=== PATIENT | male | born 1940 | race Caucasian/White ===

== ENCOUNTER → 2023-10-19 08:05 | Outpatient (REF) | payer MEDICARE, SELFPAY | LOC: DHVS 08:05 | PROVIDERS: ATTENDING PHYSICIAN Surgery Vascular Surgery | DX: I71.40 Abdominal aortic aneurysm, without rupture, unspecified (principal); I73.9 Peripheral vascular disease, unspecified | CPT/HCPCS: 76770; 93922; 93925 ==

== ENCOUNTER → 2023-11-19 12:52 | Outpatient (REF) | payer MEDICARE, SELFPAY ==
[2023-11-19 14:29] LABS: % Basophils 0.2 % (0-2); % Eosinophils 0.6 % (0-6); % Immature Granulocytes 0.2 % (0-0.5); % Lymphocytes 82.3 % (20.5-51.1); % Monocytes 1.7 % (1.7-9.3); Absolute Basophils 0.1 10^3/uL (0-0.2); Absolute Eosinophils 0.2 10^3/uL (0-0.7); Absolute Immature Granulocytes 0.1 10^3/uL (0-0.05); Absolute Lymphocytes 28.9 10^3/uL (1.2-3.4); Absolute Monocytes 0.6 10^3/uL (0.1-0.6); Absolute Neutrophils 5.3 10^3/uL (1.4-6.5); Hematocrit 36.5 % (39.0-52.0); Mean Corp Hgb Conc. 32.9 g/dL (33.0-37.0); Mean Corpuscular Hgb 31.3 pg (27.0-31.0); Mean Corpuscular Volume 95.1 fL (80.0-94.0); Mean Platelet Volume 10.5 fL (7.4-10.4); Nucleated Red Blood Cells % 0 % (-); Platelet Count 184 10^3/uL (130-400); Red Blood Cell Count 3.84 10^6/uL (4.70-6.10); Red Cell Dist. Width 14.6 % (11.5-14.5); White Blood Cell Count 35.2 10^3/uL (4.8-10.8)
[2023-11-21 18:25] LABS: Beta-2-Glycoprotein I Ab. IgG <10 SGU (<=20); Beta-2-Glycoprotein I Ab. IgM <10 SMU (<=20)
== END ==
LOC: RAD 12:52
PROVIDERS: ATTENDING PHYSICIAN Surgery Vascular Surgery; FAMILY PHYSICIAN Family Medicine; REFERRING PHYSICIAN Internal Medicine Hematology & Oncology
DX: I73.9 Peripheral vascular disease, unspecified (principal); D72.820 Lymphocytosis (symptomatic); N18.4 Chronic kidney disease, stage 4 (severe)
CPT/HCPCS: 36415; 85025; 86146; 93922; 93925

== ENCOUNTER 2023-12-16 08:30 | Day surgery (SDC) | payer MEDICARE, SELFPAY ==
[2023-12-14 09:24] VITALS: BMI 22.5
[2023-12-14 10:03] LABS: % Basophils 0.1 % (0-2); % Eosinophils 0.3 % (0-6); % Immature Granulocytes 0.3 % (0-0.5); % Lymphocytes 82.2 % (20.5-51.1); % Monocytes 1.5 % (1.7-9.3); % Neutrophils 15.6 % (42.2-75.2); Absolute Eosinophils 0.1 10^3/uL (0-0.7); Absolute Immature Granulocytes 0.1 10^3/uL (0-0.05); Absolute Lymphocytes 32.4 10^3/uL (1.2-3.4); Absolute Monocytes 0.6 10^3/uL (0.1-0.6); Absolute Neutrophils 6.1 10^3/uL (1.4-6.5); Hematocrit 39.9 % (39.0-52.0); Hemoglobin 13.3 g/dL (13.0-18.0); Mean Corp Hgb Conc. 33.3 g/dL (33.0-37.0); Mean Corpuscular Hgb 30.8 pg (27.0-31.0); Mean Corpuscular Volume 92.4 fL (80.0-94.0); Mean Platelet Volume 10.7 fL (7.4-10.4); Nucleated Red Blood Cells % 0 % (-); Platelet Count 193 10^3/uL (130-400); Red Blood Cell Count 4.32 10^6/uL (4.70-6.10); Red Cell Dist. Width 14.1 % (11.5-14.5); White Blood Cell Count 39.4 10^3/uL (4.8-10.8)
[2023-12-14 10:13] LABS: Blood Urea Nitrogen 52 mg/dl (9-20); Calcium 9.5 mg/dl (8.4-10.2); Carbon Dioxide 26 mmol/L (22-30); Chloride 100 mmol/L (98-107); Estimated Creatinine Clearance 25 ml/min; Glucose 108 mg/dl (70-99); Potassium 3.7 mmol/L (3.5-5.1); Sodium 138 mmol/L (135-145); eGFR 31.04
[2023-12-14 10:30] LABS: INR 0.97; PT 12.7 Sec (11.4-14.6)
[2023-12-14 10:31] LABS: APTT 31.1 Sec (23.4-35.0)
--- NOTE | 2023-12-14 13:09 | PTCARENOTE ---
WBC's 39.4, BUN 52 & creatinine 2.1 were all collected today; Stephanie at 's office has been notified.
[2023-12-16] VITALS (17 sets, daily range): BP systolic 15–178; BP diastolic 70–128; BMI 22.3
[2023-12-16] MEDS: NSS 500 IV (09:29)
--- NOTE | 2023-12-16 10:35 | W.SUR.PREOP ---
Pre-Operative Surgical Note
-
I have examined this patient prior to the performance of the scheduled procedure.
The patient's condition is unchanged from the time of the current History and
Physical and the patient is able to undergo the scheduled procedure.
--- NOTE | 2023-12-16 12:08 | W.SUR.POST ---
Surgical Immediate Post Op
Note
Pre Op Diagnosis: PAD
Post Op Diagnosis: PAD
Procedure Performed: Left lower extremity arteriogram with TELEVISION AGENT and stent to distal SFA/popliteal occlusion and TELEVISION AGENT/stent mid SFA stenosis
Primary Surgeon: Perry Naik MD
Secondary Surgeons: N/A
Anesthesia: MAC
Estimated Blood Loss: Less than 2 ml
Fluids: See anesthesia flowsheet
Drains/Shunts: N/A
Specimens/Cultures: N/A
Doppler/Duplex/Angio (Y/N): Y
Complications: None
Operative Findings: Dopplerable signal at DP and peroneal
--- NOTE | 2023-12-16 12:35 | W.PV.INTER ---
VPI Note
Pre Admission Note
Functional Status: Light Work
Ambulation: Ambulate Independently
Pre Op Medications
Pre Op ASA: No
Pre Op Statin: Yes
Pre Op BHAKTI Inhibitor/ARB: No
Pre Op P2y12 Antagonist: None
Pre Op Beta Blockers: Chronic > 30 Days
Pre Op Chronic Anticoagulant: None
Pre Op Cilostazol: No
Post Op Medications
Post Op ASA: Yes
Post Op Statin: Yes
Post Op BHAKTI Inhibitor/ARB: No
Post Op P2y12 Antagonist: Clopidogrel
Post Op Beta Blockers: Chronic > 30 Days
Post Op Chronic Anticoagulant: None
Post Op Cilostazol: No
[2023-12-16] MEDS: LOW STRENGTH ASPIRIN 81 MG PO (12:52)
[2023-12-16] MEDS: PLAVIX 300 MG PO (12:52)
[2023-12-16] MEDS: NSS 1000 IV (13:15)
--- NOTE | 2023-12-16 13:24 | OR.RPT ---
Operative Report
Operative Report
PROCEDURE DATE: 12/16/2023
Preoperative diagnosis:
1. Chronic limb threatening ischemia left lower extremity.
2. History of aortobiiliac endograft placement for abdominal aortic aneurysm.
3. Chronic kidney disease.
Postoperative diagnosis: Same
Procedure:
1. Duplex assisted ANTEGRADE left common femoral artery puncture.
2. Left lower extremity arteriogram.
3. Subintimal recanalization of occluded left distal superficial femoral/cybuj-lgv-gwhn popliteal artery.
4. Balloon angioplasty of occluded distal superficial femoral artery/nsrpa-ell-qnhc popliteal artery with 4 mm angioplasty balloon.
5. Placement of Zilver PTX drug-eluting stent (6 mm x 120 mm) left distal superficial femoral artery/above-knee popliteal artery.
6. Balloon angioplasty/stent with a Zilver PTX drug-eluting 6 mm x 4 cm stent left mid superficial femoral artery stenosis.
7. Supervision and interpretation.
Surgeon: Naik
System Operation Superintendent: None
Complications: None
Anesthesia: Local, sedation
Fluoroscopy:
7.8 min
17 mGy
3.65 Gy.cm2
Indications for procedure:
Patient with known chronic peripheral arterial disease and claudication. History of bifurcated modular aortobiiliac stent graft for abdominal aortic aneurysm. Due to concerns about chronic kidney disease and patient's ability to manage (despite
moderate lifestyle limitation), we had favored conservative management. Patient presented with severely worsened claudication and signs/symptoms consistent with ischemic rest plane/limb threatening ischemia. Duplex had demonstrated new occlusion
of the distal SFA and popliteal artery. Therefore patient was brought for angiography. Risk/benefits/alternatives were all fully discussed including the concerns about worsening of chronic kidney disease. Discussed due to history of endograft,
need for antegrade access. He understood all wish to proceed.
Description of procedure:
Patient was identified, brought to the operating room. Placed on the table in the supine position. After the adequate administration of anesthesia, the patient was prepped and draped in the standard surgical fashion. A standard preoperative
timeout was undertaken and everybody was in agreement with the plan.
The left common femoral artery was accessed in an ANTEGRADE fashion with a micropuncture kit under direct duplex ultrasound guidance. Duplex assessment demonstrated moderate common femoral and femoral bifurcation plaque. Angiogram through the
micropuncture sheath confirmed access of the common femoral with wire and micropuncture sheath into the SFA. A 5 [place] sheath was then advanced into the SFA over a 0.035 inch wire. Left lower extremity arteriogram was then performed:
(Common femoral and profunda not visualized secondary to antegrade access with sheath tip in superficial femoral artery).
Superficial femoral artery: Patent with diffuse luminal irregularities and areas of calcified plaque. Moderate mid SFA stenosis with slightly irregular flow distal to the area of stenosis (somewhat whirling of contrast and poststenotic dilated
SFA). Patent flow beyond here but again luminal irregularities diffusely. Then occlusion at the very distal SFA/above-knee popliteal artery transition.
Popliteal artery: Occluded proximally, but reconstituted flow in the distal lcxcu-gkp-jlef/behind knee popliteal artery. Remainder of the popliteal artery appeared patent with no significant stenosis. Beyond here the runoff appeared to be via the
tibioperoneal trunk into the peroneal artery. The other tibial vessels were not visualized. There was some moderate atherosclerotic plaque and areas of possible mild to moderate stenoses in the TP trunk and peroneal artery, but no severe
high-grade stenosis could be confirmed.
At this point, I exchanged for a Storq wire in the SFA, and then exchanged for a 6 [place]an 45 cm sheath (so that I could angled the sheath over towards the right groin to facilitate workflow). The patient was given 5000 units of intravenous heparin.
Next under roadmap assisted guidance I was able to gain subintimal axis using a flopping on hydrophilic wire and a CXI catheter. I was then able to gain wire access back into the true lumen in the above-knee popliteal artery. My catheter advanced
through and I confirmed that I was in the true lumen in the behind/below-knee popliteal artery. I then exchanged back for a Storq wire. I then performed balloon angioplasty to predilate the area of occlusion with a 4 mm angioplasty balloon. Next
I placed a 6 mm x 120 mm Zilver PTX drug-eluting self-expanding stent in the occluded segment of very distal SFA and above-knee popliteal artery. This was post angioplastied with a 5 mm angioplasty balloon. Completion angiogram demonstrated
excellent result. At this point I elected to primarily stent to the mid SFA stenosis alluded to earlier. I used a 6 mm x 4 cm Zilver PTX stent and then post angioplastied with a 5 mm balloon. Completion angiogram now demonstrated excellent result
with good flow throughout the entirety of the SFA and above-knee, behind knee, below knee popliteal artery into the TP trunk/peroneal artery runoff. As noted there was some areas of mild to moderate stenosis in the runoff single-vessel, but given
his symptoms of claudication and concern regarding his single-vessel runoff I did not feel an intervention in those vessels was warranted. At this point I was very satisfied. Wires and catheters were withdrawn. Protamine was given to reverse the
heparin and the sheath was withdrawn and manual pressure was applied. Complete hemostasis was achieved in the left groin. The patient tolerated the procedure well. He had a good dopplerable peroneal Doppler signal as well as a Doppler signal in
the vicinity of the distal DP.
== END 2023-12-16 18:15 | disposition home or self-care (01) ==
LOC: CATH 08:30
PROVIDERS: ATTENDING PHYSICIAN Surgery Vascular Surgery; FAMILY PHYSICIAN Family Medicine; OTHER PHYSICIAN Internal Medicine Cardiovascular Disease; OTHER PHYSICIAN Specialist
DX: I70.222 Atherosclerosis of native arteries of extremities with rest pain, left leg (principal); Z95.820 Peripheral vascular angioplasty status with implants and grafts; Z79.84 Long term (current) use of oral hypoglycemic drugs; I12.9 Hypertensive chronic kidney disease with stage 1 through stage 4 chronic kidney disease, or unspecified chronic kidney disease; N18.4 Chronic kidney disease, stage 4 (severe); Z87.891 Personal history of nicotine dependence
CPT/HCPCS: 37226; 36415; 75710; 76937; 80048; 85025; 85610; 85730; 86850; 86900; 86901; 93005; C1725; C1769; C1874; C1887; C1894; Q9967

== ENCOUNTER 2024-01-14 13:15 | Inpatient (IN) | payer MEDICARE, SELFPAY ==
[2024-01-14] VITALS (7 sets, daily range): BP systolic 117–172; BP diastolic 70–105; BMI 22.2; BMI 21.5
--- NOTE | 2024-01-14 10:33 | ED.GENMED ---
History of Present Illness
General
Chief Complaint: Anal/Rectal Problem
Source: patient
Exam Limitations: none
Time Seen by Provider: 01/14/24 09:57
Travel History
Have you had any contact with someone who has COVID-19?: No
Do you have any symptoms of coronavirus? Fever > 100 degrees, chills, cough, shortness of breath, sore throat, loss of taste or smell, muscle aches, or headache?: No
History of Present Illness
History of Present Illness:
83-year-old male who presents with black stools. The patient states that symptoms have been ongoing for about 3 days. Patient recently was put on aspirin and Plavix due to lower extremity vascular procedure that was performed on December 15. Patient
denies abdominal pain but has felt a little bit weak. No shortness of breath or lightheadedness. No palpitations.
Past History
Past History
ED Past Medical History: HTN, Hypercholesterolemia and Other (bladder ca, renal insufficiency, Peripheral vascular disease, upper GI bleed, abdominal aortic aneurysm, angioectasia of the duodenum)
ED Past Surgical History: Appendectomy
Social History
Tobacco: Former smoker
Alcohol: None
Drug: None
Living: alone
Phy Exam
Physical Exam
Physical Exam:
CONSTITUTIONAL Patient alert and oriented to person, place and time. Well-appearing. Vital signs reviewed.
HEAD atraumatic, normocephalic.
EYES eyelids normal to inspection, Extraocular muscles intact, Conjunctiva normal, Sclera normal.
NECK normal range of motion, Trachea midline, no jugular venous distention.
RESPIRATORY CHEST No respiratory distress noted, Chest expansion equal, Bilateral breath sounds clear.
CARDIOVASCULAR regular rate and rhythm, Heart sounds normal.
ABDOMEN abdomen nontender, Bowel sounds normal. No distention.
Rectal exam melanotic stool, heme positive
BACK normal inspection, no obvious deformities
UPPER EXTREMITY range of motion normal, Motor strength normal, no cyanosis, no edema.
LOWER EXTREMITY range of motion normal, Motor strength normal, no cyanosis, no edema.
NEURO Speech normal, No focal motor deficits, [place] coma scale 15, Memory normal, Cranial Nerves intact to screening exam.
SKIN skin warm, dry, and normal in color.
PSYCHIATRIC patient oriented to person place and time, Normal affect.
Course
Orders/Labs/Results
Orders:
Orders
01/14/24
Electrocardiogram (*1) Stat
Reason for Study: Chest Pain
Comment: DONE
01/14/24 09:28
EKG- Treatment ONCE
01/14/24 10:05
IV Insert/Care/Rem.- Treatment PRN
01/14/24 10:40
Pantoprazole 80 mg/100 ml Nss [Protonix] 80 mg in 100 ml IV NOW
Pantoprazole [Protonix IV] 80 mg IV NOW STA
01/14/24 11:16
Complete Blood Count/With Diff Urgent
Comprehensive Metabolic Panel Urgent
Prothrombin Time Urgent
01/14/24 13:05
GASTROINTESTINAL CONSULT Routine
Consulting Provider: Kamilah Renee
Was physician already notified: Yes
Reason for consult: gi bleed on asa plavix
01/14/24 13:06
Admit/Transfer Patient As Directed
Co-Sign Provider:
Level of Care: Inpatient admission
Assign to:: Medical/Surgical
Physician / Group: waldo muse
Diagnosis: gi bleed likely upper
Reason for Hospitalization: gi bleed likely upper
Expected length of stay greater than two midnights?: Yes
ELOS- Estimated Length of Stay in days: 3
I certify the patient meets the requirements for IP care: Yes
Code Status As Directed
Resuscitation Status: Do not resuscitate
Reached after discussion with pt or family/Healthcare POA: Yes
Based on pt advanced directive or healthcare POA form: Yes
Decision communicated with: per pt
DNR Bracelet Application ONCE
01/14/24 13:23
Type+Screen Urgent
01/14/24 14:18
Acetaminophen [Tylenol] 650 mg PO Q4HPRN PRN
Pantoprazole 80 mg/100 ml Nss [Protonix] 80 mg in 100 ml IV Q10H
01/14/24 14:18
Activity As Directed
Activity Level: As Tolerated
Intake/ Output As Directed
Frequency: Per unit guidelines
Pneumatic Compression Sleeves As Directed
Type: Knee high
Vital Signs As Directed
Frequency: Per unit guidelines
Ot Eval And Treat Routine
Pt Eval And Treat Routine
Activity Level: As Tolerated
DX Deep Vein Thrombosis Video Routine
01/14/24 Dinner
NPO
Allow oral meds: Yes
Allow clear liquids: No
NPO with Ice Chips: No
01/14/24 20:00
Carvedilol [Coreg] 12.5 mg PO BID
01/15/24 06:00
Complete Blood Count/With Diff IN AM
Comprehensive Metabolic Panel IN AM
01/15/24 08:00
Dapagliflozin [Farxiga] 10 mg PO DAILY
Felodipine Extended Release [Plendil Extended Release] 5 mg PO DAILY
Rosuvastatin Calcium [Crestor] 10 mg PO DAILY
01/16/24 06:00
Complete Blood Count/With Diff IN AM
Comprehensive Metabolic Panel IN AM
01/17/24 06:00
Complete Blood Count/With Diff IN AM
Comprehensive Metabolic Panel IN AM
Abnormal Lab Results
01/14/24
11:16
WBC 26.3 H 10^3/uL
(4.8-10.8)
RBC 3.22 L 10^6/uL
(4.70-6.10)
Hgb 10.0 L g/dL
(13.0-18.0)
Hct 30.8 L %
(39.0-52.0)
MCV 95.7 H fL
(80.0-94.0)
MCH 31.1 H pg
(27.0-31.0)
MCHC 32.5 L g/dL
(33.0-37.0)
RDW 15.0 H %
(11.5-14.5)
MPV 10.7 H fL
(7.4-10.4)
Abs Immat Gran (auto) 0.1 H 10^3/uL
(0-0.05)
Absolute Lymphs (auto) 20.6 H 10^3/uL
(1.2-3.4)
Neutrophils % 18.3 L %
(42.2-75.2)
Lymphocytes % 78.2 H %
(20.5-51.1)
BUN 75 H mg/dl
(9-20)
Creatinine 2.3 H mg/dL
(0.7-1.3)
Glucose 107 H mg/dl
(70-99)
01/14/24 11:16
01/14/24 11:16
Vital Signs
Initial and Last Documented VS:
Initial Vital Signs
Temp Pulse Resp BP Pulse Ox
97.7 F 74 16 135/78 98
01/14/24 09:48 01/14/24 09:48 01/14/24 09:48 01/14/24 09:48 01/14/24 09:48
Last Documented Vital Signs
Temp Pulse Resp BP Pulse Ox
97.4 F 73 16 172/92 100
01/14/24 14:19 01/14/24 14:19 01/14/24 14:19 01/14/24 14:19 01/14/24 14:19
MDM/Problems Addressed
MDM/Problems Addressed:
Upper GI bleed, chronic AAA
*Pulse Oximetry
Patient hypoxic: no
*EKG
Interpreted by ED Provider?: Yes
Interpretation: abnormal
Rhythm: sinus
[place]: normal axis
Interval: first degree heart block
Ischemia: non-specific ST changes
*Airport Manager Interpretation
Rate: normal
Interpretation: normal
Rhythm: sinus
*Critical Care Note
Total Time (30-74mins, 75-104mins- exclusive of procedures): 30 minutes
Data Reviewed
Review of Other/Old Records Reveals: Labs (Prior hemoglobin reviewed), Operative Reports (Operative report reviewed from December 15) and Other (Prior endoscopy reviewed from October 2018)
Source: patient and family
Further Testing Considered But Not Given:
Consider CT but abdomen soft and nontender. Suspect upper GI bleed.
Patient Management
Discussion with other providers: Hospitalist
Escalation/DeEscalation of care consider admission/obs:
83-year-old male presents with GI bleeding. Hemodynamically he is stable but his hemoglobin is dropped 3 g from prior. IV PPI, admit
ED Attending Note
-
Portions of this chart may have been created with voice recognition software.� Occasional wrong word or��sound alike� substitutions may have occurred due to the inherent limitations of voice recognition software.
Discharge Plan
Departure
Patient Disposition: Admit
Date of Disposition: 01/14/24
Time of Disposition: 12:31
Admit to: Telemetry
Presentation/result/management discussed w/ accepting MD/DO: Hospitalist
Discharge Problem:
Acute upper gastrointestinal bleeding
Interventions
Interventions:
*Risk Screen - Suicide Last Done: 01/14/24 11:03
*General Assessment Last Done: 01/14/24 11:01
*Neglect/Abuse Screening Last Done: 01/14/24 12:15
ED- Fall Risk Assessment Last Done: 01/14/24 12:16
*ED COVID-19 Vaccine History Last Done: 01/14/24 09:48
*Nursing Disposition Last Done: 01/14/24 14:25
MN-Ndcdep-Liocfzwwhg Assessment Last Done: 01/14/24 12:00
ED-Skin Assessment Last Done: 01/14/24 12:16
Discharge Date and Time
Discharge Date/Time: 01/14/24 14:27
[2024-01-14] MEDS: PROTONIX IV 80 MG IV (11:13)
[2024-01-14] MEDS: PROTONIX 100 IV ×3 (11:13→19:34)
[2024-01-14 11:53] LABS: % Basophils 0.3 % (0-2); % Eosinophils 0.8 % (0-6); % Immature Granulocytes 0.3 % (0-0.5); % Lymphocytes 78.2 % (20.5-51.1); % Monocytes 2.1 % (1.7-9.3); % Neutrophils 18.3 % (42.2-75.2); Absolute Basophils 0.1 10^3/uL (0-0.2); Absolute Eosinophils 0.2 10^3/uL (0-0.7); Absolute Immature Granulocytes 0.1 10^3/uL (0-0.05); Absolute Lymphocytes 20.6 10^3/uL (1.2-3.4); Absolute Monocytes 0.5 10^3/uL (0.1-0.6); Absolute Neutrophils 4.8 10^3/uL (1.4-6.5); Hematocrit 30.8 % (39.0-52.0); Mean Corp Hgb Conc. 32.5 g/dL (33.0-37.0); Mean Corpuscular Hgb 31.1 pg (27.0-31.0); Mean Corpuscular Volume 95.7 fL (80.0-94.0); Mean Platelet Volume 10.7 fL (7.4-10.4); Nucleated Red Blood Cells % 0.1 % (-); Platelet Count 161 10^3/uL (130-400); Red Blood Cell Count 3.22 10^6/uL (4.70-6.10); White Blood Cell Count 26.3 10^3/uL (4.8-10.8)
[2024-01-14 11:57] LABS: INR 1.02; PT 13.2 Sec (11.4-14.6)
[2024-01-14 12:03] LABS: ALT (SGPT) 22 U/L (0-50); AST (SGOT) 28 U/L (17-59); Albumin 4.9 g/dl (3.5-5.0); Alkaline Phosphatase 101 U/L (38-126); Blood Urea Nitrogen 75 mg/dl (9-20); Calcium 9.4 mg/dl (8.4-10.2); Carbon Dioxide 25 mmol/L (22-30); Chloride 102 mmol/L (98-107); Estimated Creatinine Clearance 23 ml/min; Glucose 107 mg/dl (70-99); Potassium 3.7 mmol/L (3.5-5.1); Sodium 140 mmol/L (135-145); Total Bilirubin 0.4 mg/dl (0.2-1.3); Total Protein 7.2 g/dl (6.3-8.2); eGFR 27.83
--- NOTE | 2024-01-14 12:44 | HPS.HSE ---
Addendum entered and electronically signed by Alejandra Castro MD 01/14/24 16:10:
Addendum
Reached out to oncology office. Pt is dx with CLL.
End
Addendum entered and electronically signed by Alejandra Castro MD 01/14/24 14:08:
I saw and examined the patient.
The WINDOWS PHONE DEVELOPER or PA's note was reviewed and I agree with the note.
Comment:
83 years old male who lives alone presented with black stools over the last few days. He had 1 black stool this morning and 2 black bowel movements yesterday at home. No abdominal pain. No nausea or vomiting. Patient takes aspirin and Plavix for
peripheral vascular disease.
Physical Exam
General: Comfortable and Conversant; No Fever or Chills
HEENT: NormoCephalic, Anicteric, PERRLA, [place] Conjunctivae and No Ptosis
Respiratory: Clear; No Wheezes, Rales or Rhonchi
Cardiac: S1/S2 and Regular Rhythm; No Murmur, Rub, Gallop or Peripheral Edema
GI: Soft, Non Tender, Non Distended, Normal Bowel Sounds and No Hepatosplenomegaly
Rectal: Hem Positive ([place])
Genito-urinary: No Hua
Musculoskeletal: No Clubbing, No Cyanosis and No Edema
Skin: Warm and Dry; No Rash
Neuro: AO x 3, No Motor Deficits, Nonfocal/grossly intact, Cranial Nerves Intact and No Sensory Deficits; No Slurred Speech, Facial Droop or Tremors
Psych: No agitation
Assessment and plan
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
Admit the patient to the hospital
Hold Plavix, continue with aspirin
No signs of shock
Continue with Protonix
Antinausea medicine as needed
Clear diet for now
Might need upper endoscopy
Appreciate GI help
# Recent left lower extremity angiogram and stent placement
Will hold the Plavix for anticipated GI workup and ongoing GI bleeding
Continue with aspirin for now
Will discuss with vascular surgery
# Patient reports recent diagnosis of blood disorder/leukemia. Primary oncologist Dr. Parson. Will reach out to know more details
#Chronic kidney disease stage IV
Creatinine mildly elevated from 2.1-2.3
Will continue to monitor. Avoid nephrotoxic
Total time spent to see the patient, examine the patient on the floor, review data and lab results, discuss treatment plan with patient, ER doctor, nursing staff around 75 minutes
Original Note:
Family Physician
-
Family Physician: Juliano Villegas
Chief Complaint
-
Black stools x 3 to 4 days
History of Present Illness
83-year-old male complaining of black stools for the past 3-4 days. He is currently on aspirin and Plavix status post drug-eluting stents to left lower extremity on 12/16/2023 and aorto iliac endograft placement for abdominal aortic aneurysm by
[facility]. Patient denies headache, fever, chills, abdominal pain, nausea, vomiting, diarrhea, chest pain, palpitations, shortness of breath, lightheadedness. Other past medical history includes leukemia HTN, HLD bladder CA, TURP x 2 2011/2012, TURBT
2019, CKD 4, PVD, angio ectasia of the duodenum, AAA, former smoker.
Medical History
Past Medical History
Past Medical History: Reports Other
Additional Past Medical History:
leukemia
HTN
HLD
bladder CA 12 years ago
CKD 4
PVD
angio ectasia of the duodenum with GI bleed 2015 years ago
AAA
former smoker.
Past Surgical History: Reports Other
Additional Past Surgical History:
Hx aortobiiliac endograft placement for abdominal aortic aneurysm 12/16/2023
s/p drug-eluting stent distal superficial femoral artery above-knee popliteal artery 12/16/2023
drug-eluting stent left mid superficial femoral artery 12/16/2023
Appendectomy
Tonsillectomy
TURP x 2 , TURBT 2018
Bilateral cataract extraction 2017
Social History
Tobacco: Former Smoker (50 years 1 pack a day quit 2011)
Alcohol: None
Drug: None
Personal: Single
Living: Alone
Employment: Retired
Family History
Family History: Other (Mother age 94 cardiac issues father age 70s metastatic prostate cancer)
Allergies / Home Medications
Allergies reflects when Allergies were last updated in [facility].
Home Medications with original date entered in [facility]
Allergy/Medication List:
Allergies
Allergy/AdvReac Type Severity Reaction Status Date / Time
BHAKTI Inhibitors Allergy growth to Verified 01/14/24 09:50
cheek
mitomycin AdvReac Itching Verified 01/14/24 09:50
Home Medications
carvedilol 12.5 mg tablet 12.5 mg PO BID 11/21/18
felodipine 5 mg tablet,extended release 24 hr 5 mg PO DAILY 11/21/18
hydrochlorothiazide 25 mg tablet 25 mg PO DAILY 11/21/18
Cardio [place] (Peak) 2 tab PO DAILY 06/02/19
dapagliflozin propanediol 10 mg tablet (Farxiga) 10 mg PO DAILY 12/08/23
rosuvastatin 10 mg tablet 10 mg PO DAILY 12/08/23
aspirin 81 mg chewable tablet (Children's Aspirin) 81 mg PO DAILY #90 tabs 12/16/23
clopidogrel 75 mg tablet 75 mg PO DAILY #90 tabs 12/16/23
Review of Systems
-
History Source: Patient
A 12 point ROS was completed and negative except as noted: Yes
Constitutional: Reports Fatigue; Denies Fever
EENT: Denies Sore Throat or Runny Nose
Respiratory: Denies Cough or Trouble Breathing
Cardiac: Denies Chest Pain, Diaphoresis, Palpitations or Syncope
Abdomen/GI: Reports Black Stools; Denies Abdominal Pain, Nausea, Vomiting, Diarrhea, Constipated or Bloody Stools
: Denies Dysuria, Frequency, Flank Pain, Incontinence or Difficulty Voiding
Musculoskeletal: Denies Joint Pain or Edema
Skin: Denies Itching or Rash
Neurological: Denies Dizzy, Headache or Weakness
Endocrine: Reports No Symptoms
Hematologic/Lymphatic: Reports No Symptoms
Psych: Reports Calm
Physical Exam
Vital Signs
Vital Signs
Temp Pulse Resp BP Pulse Ox
97.7 F 77 11 133/79 100
01/14/24 09:48 01/14/24 12:15 01/14/24 11:15 01/14/24 12:00 01/14/24 12:15
Physical Exam
General: Comfortable and Conversant; No Fever or Chills
HEENT: NormoCephalic, Anicteric, PERRLA, [place] Conjunctivae and No Ptosis
Respiratory: Clear; No Wheezes, Rales or Rhonchi
Cardiac: S1/S2 and Regular Rhythm; No Murmur, Rub, Gallop or Peripheral Edema
Breast: Deferred by me
GI: Soft, Non Tender, Non Distended, Normal Bowel Sounds and No Hepatosplenomegaly
Rectal: Hem Positive ([place])
Genito-urinary: Deferred by me
Musculoskeletal: No Clubbing, No Cyanosis and No Edema
Skin: Warm and Dry; No Rash
Neuro: AO x 3, No Motor Deficits, Nonfocal/grossly intact, Cranial Nerves Intact and No Sensory Deficits; No Slurred Speech, Facial Droop or Tremors
Laboratory Results
-
01/14/24 11:16
01/14/24 11:16
Laboratory Results
PT 13.2 Sec (11.4-14.6) 01/14/24 11:16
INR 1.02 01/14/24 11:16
Total Bilirubin 0.4 mg/dl (0.2-1.3) 01/14/24 11:16
AST 28 U/L (17-59) 01/14/24 11:16
ALT 22 U/L (0-50) 01/14/24 11:16
Alkaline Phosphatase 101 U/L (38-126) 01/14/24 11:16
Impression/Plan
-
Impression/plan:
Admit to [facility]
GI bleed suspect possible upper
#History angioectasias of the duodenum with GI bleed 12 to 15 years ago
Heme positive stool in ER
-Hgb 10 was 13.3 on 12/14/2023
-Type and screen, obtain blood consent
-NPO
-IV PPI drip
-Hold Plavix, HCTZ
-Will continue low-dose aspirin 81 mg due to recent stents
-Consult GI
-Consult vascular surgery
-Follow CBC, BMP
#Hx aortobiiliac endograft placement for abdominal aortic aneurysm 12/16/2023
#Chronic limb ischemia left lower extremity Hx 12/16/2023
S/p drug-eluting stent distal superficial femoral artery above-knee popliteal artery, drug-eluting stent left mid superficial femoral artery
-Follows with Dr. Naik
-Hold Plavix
-Will continue low-dose aspirin 81 mg due to recent stents
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
WBC 26.3 <39.4 on 12/14/2023
-Patient follows with Dr. Rossana Parson not currently on any treatment
#CKD 4
Creatinine 2.3 baseline appears 2
-Follow BMP
#HTN�benign
133/79
-Continue carvedilol 12.5 mg twice daily, felodipine 5 mg daily, HCTZ 25 mg daily with hold parameters
#HLD
-Continue Crestor 10 mg daily
#Bladder CA 12 years ago
Had chemo wash/TURP x 2 , TURBT [address] Schaffer
DVT prophylaxis
SCDs
DNR per patient
--- NOTE | 2024-01-14 15:12 | CON.GI ---
Addendum entered and electronically signed by Kamilah Renee MD 01/14/24 18:37:
I saw and examined the patient.
The LABORER [employer]'s note was reviewed and I agree with the note.
Pt is an 83yo with hx chauhan's, CKD, leukemia, HTN, Hypercholesterolemia, bladder CA, prior angioectasia and recent chronic limb ischemia with arteriogram, recanalization of occluded left distal femoral popliteal artery, angioplasty with placement
of ALYSHA x2 in December 2023 with addition of Plavix. Pt now reports black stool over last few days. Last EGD 2018 with single angioectasia in duodenum treated with bipolar cautery, small HH, bx with + intestinal metaplasia, Colonoscopy 2019 with
diverticulosis, non bleeding hemorrhoids, TA polyps. On admission hbg 10 with baseline 12-13 in November. BUN up to 75 on admission
-melena/ acute anemia
-hx vascular stenting December 2023 on ASA and Plavix
-hx duodenal angioectasia 2018
-hx colon polyps
-- CLL
plan
Monitor H&H
Continue Protonix drip
Last Plavix -on hold now. Okay to continue aspirin
Timing of EGD to be decided next week after Plavix washout
Original Note:
Consultation
-
Date/Time Consultation Requested: 01/14/24 1400
Date/Time Consultation Performed: 01/14/24 1515
Requesting Provider: TY Ramirez
Performing Provider: TY Manriquez, Kamilah Renee MD
Reason for Consultation: GI bleed
Medical History
Chief Complaint / HPI
Chief Complaint: black stools
History of Present Illness:
Pt is an 83yo with hx chauhan's, CKD, leukemia, HTN, Hypercholesterolemia, bladder CA, prior angioectasia and recent chronic limb ischemia with arteriogram, recanalization of occluded left distal femoral popliteal artery, angioplasty with placement
of ALYSHA x2 in December 2023 with addition of Plavix. Pt now reports black stool over last few days. Last EGD 2019 with single angioectasia in duodenum treated with bipolar cautery, small HH, bx with + intestinal metaplasia, Colonoscopy 2019 with
diverticulosis, non bleeding hemorrhoids, TA polyps. On admission hbg 10 with baseline 12-13 in November.
Pt admit to [facility]4 [facility]. ER exam with melena heme +. He denies dysphagia, GERD, nausea, vomiting, abdominal pain, diarrhea, constipation, blood or black in stools. On daily ASA no other NSAID use.
Past Medical History
Past Medical History: Cancer (bladder CA), HTN, Hypercholesterolemia, Renal Failure (CKD stage 4) and Other (leukemia, PVD, angioectasia of duodenum with GI bleed 2018, AAA, former smoker, DJD, colon polyps, BHAKTI induced angioedema, chauhan's )
Past Surgical History: Appendectomy, Tonsilectomy, Urological (TURP, TURBT) and Other (aortobiiliac endograft placement for AAA, EUS superficial femoral artery above then knee popliteal artery 12/2023, and drug eluting stent left mid superficial fem
artery 12/2023, b/l cataract)
Social History
Tobacco: Non-Smoker
Alcohol: Occasional
Drug: None
Employment: Retired
Family History
Family History: Reviewed & Not Pertinent
Allergies / Home Medications
Allergy/AdvReac Type Severity Reaction Status Date / Time
BHAKTI Inhibitors Allergy growth to Verified 01/14/24 09:50
cheek
mitomycin AdvReac Itching Verified 01/14/24 09:50
�Medication �Instructions �Recorded
carvedilol 12.5 mg tablet 12.5 mg PO BID 11/21/18
felodipine 5 mg tablet,extended 5 mg PO DAILY 11/21/18
release 24 hr
hydrochlorothiazide 25 mg tablet 25 mg PO DAILY 11/21/18
Cardio [place] ([place]) 2 tab PO DAILY 06/02/19
dapagliflozin propanediol 10 mg 10 mg PO DAILY 12/08/23
tablet (Farxiga)
rosuvastatin 10 mg tablet 10 mg PO DAILY 12/08/23
aspirin 81 mg chewable tablet 81 mg PO DAILY #90 tabs 12/16/23
(Children's Aspirin)
clopidogrel 75 mg tablet 75 mg PO DAILY #90 tabs 12/16/23
Review of Systems
-
History Source: Patient
Constitutional: Reports Weight Loss ( 5lb )
EENT: Reports No Symptoms
Respiratory: Reports No Symptoms
Cardiac: Reports No Symptoms
Abdomen/GI: Reports Black Stools
: Reports No Symptoms
Musculoskeletal: Reports No Symptoms
Skin: Reports No Symptoms
Neurological: Reports Weakness
Endocrine: Reports No Symptoms
Hematologic/Lymphatic: Reports Bleeding
Vital Signs
Temp Pulse Resp BP Pulse Ox
97.4 F 73 16 172/92 100
01/14/24 14:19 01/14/24 14:19 01/14/24 14:19 01/14/24 14:19 01/14/24 14:19
Physical Exam
Exam
General: Well Developed, Well Nourished and No Apparent Distress
HEENT: Normocephalic and Anicteric
Respiratory: Clear
Cardiac: Regular Rhythm
GI: Soft, Non Tender and Non Distended
Rectal: Black (heme + melena per ER)
Musculoskeletal: No Cyanosis
Skin: Warm and Dry
Neuro: Awake, Alert and AO x 3
Psych: Calm
Results
WBC 26.3 10^3/uL (4.8-10.8) H 01/14/24 11:16
Hgb 10.0 g/dL (13.0-18.0) L 01/14/24 11:16
Hct 30.8 % (39.0-52.0) L 01/14/24 11:16
MCV 95.7 fL (80.0-94.0) H 01/14/24 11:16
Plt Count 161 10^3/uL (130-400) 01/14/24 11:16
Absolute Neuts (auto) 4.8 10^3/uL (1.4-6.5) 01/14/24 11:16
PT 13.2 Sec (11.4-14.6) 01/14/24 11:16
INR 1.02 01/14/24 11:16
Sodium 140 mmol/L (135-145) 01/14/24 11:16
Potassium 3.7 mmol/L (3.5-5.1) 01/14/24 11:16
Chloride 102 mmol/L (98-107) 01/14/24 11:16
Carbon Dioxide 25 mmol/L (22-30) 01/14/24 11:16
BUN 75 mg/dl (9-20) H 01/14/24 11:16
Creatinine 2.3 mg/dL (0.7-1.3) H 01/14/24 11:16
Calcium 9.4 mg/dl (8.4-10.2) 01/14/24 11:16
Total Bilirubin 0.4 mg/dl (0.2-1.3) 01/14/24 11:16
AST 28 U/L (17-59) 01/14/24 11:16
ALT 22 U/L (0-50) 01/14/24 11:16
Alkaline Phosphatase 101 U/L (38-126) 01/14/24 11:16
Diagnostic Image Results:
Prior GI Procedures:
10/2018 EGD - Normal second portion of the duodenum. Biopsied.
- A single angioectasia in the duodenum. Treated with
bipolar cautery.
- Erythematous mucosa in the antrum. Biopsied.
- Small hiatal hernia.
- Normal cardia.
- Z-line irregular, 38 cm from the incisors. Biopsied.
bx neg for H pylori, celiac, + mild chronic inactive gastritis and intestinal metaplasia in distal esophagus
10/2018- colon - The examined portion of the ileum was normal.
- Diverticulosis in the descending colon, in the
transverse colon, in the ascending colon and in the
cecum.
- Severe diverticulosis in the sigmoid colon. There was
narrowing of the colon in association with the
diverticular opening. There was evidence of diverticular
spasm. Lexi-diverticular erythema was seen.
- Non-bleeding external hemorrhoids.
- One 8 mm polyp in the proximal ascending colon,
removed with a cold snare. Resected and retrieved.
- One 6 mm polyp at 50 cm proximal to the anus, removed
with a cold snare. Resected and retrieved.
- Enlarged prostate found on digital rectal exam
bx tubular adenoma
Assessment / Plan
-
Pt is an 83yo with hx chauhan's, CKD, leukemia, HTN, Hypercholesterolemia, bladder CA, prior angioectasia and recent chronic limb ischemia with arteriogram, recanalization of occluded left distal femoral popliteal artery, angioplasty with placement
of ALYSHA x2 in December 2023 with addition of Plavix. Pt now reports black stool over last few days. Last EGD 2018 with single angioectasia in duodenum treated with bipolar cautery, small HH, bx with + intestinal metaplasia, Colonoscopy 2018 with
diverticulosis, non bleeding hemorrhoids, TA polyps. On admission hbg 10 with baseline 12-13 in November. BUN up to 75 on admission
-melena
-anemia
-hx vascular stenting December 2023 on ASA and Plavix
-hx duodenal angioectasia 2018
-hx colon polyps
other medical problems:
-chauhan's
-CKD
-leukemia with elevated WBC's
-bladder CA
-HTN
-hypercholesterolemia
PLAN:
Etiology of bleeding related recurrent angioectasia with slow GI bleed vs other BUN elevated to 75 likely more upper GI source
plan for EGD/colon after Plavix wash out -- pt took plavix this am 01/13
hbg stable cont to follow
ok for low residue diet today
reviewed with Dr. Naik about admission ideally 6 weeks needed of Plavix therapy -- goal is scope and restart
pt with hx chauhan's due EGD and should be on terminal manager PPI therapy -- cont ppI gtt for now
will follow
-
-
Thank you for consultation and allowing me to participate in the patient's care. Please call the [facility] operator GI physician during the after hours with any questions or concerns.
--- NOTE | 2024-01-14 15:35 | PTOTSP ---
The patient is independent with ambulation and elevations, no changes in mobility since onset of symptoms. No PT needs identified at this time, will sign off.
[2024-01-14] MEDS: COREG 12.5 MG PO (19:43)
[2024-01-15] MEDS: PROTONIX 100 IV (06:30)
[2024-01-15 07:00] VITALS: BP 174/81
[2024-01-15 08:21] LABS: % Basophils 0.2 % (0-2); % Eosinophils 0.9 % (0-6); % Immature Granulocytes 0.1 % (0-0.5); % Lymphocytes 76.2 % (20.5-51.1); % Monocytes 2.3 % (1.7-9.3); % Neutrophils 20.3 % (42.2-75.2); Absolute Eosinophils 0.2 10^3/uL (0-0.7); Absolute Lymphocytes 15.3 10^3/uL (1.2-3.4); Absolute Monocytes 0.5 10^3/uL (0.1-0.6); Absolute Neutrophils 4.1 10^3/uL (1.4-6.5); Hematocrit 26.6 % (39.0-52.0); Hemoglobin 8.8 g/dL (13.0-18.0); Mean Corp Hgb Conc. 33.1 g/dL (33.0-37.0); Mean Corpuscular Hgb 31.4 pg (27.0-31.0); Nucleated Red Blood Cells % 0 % (-); Platelet Count 145 10^3/uL (130-400); Red Cell Dist. Width 15.1 % (11.5-14.5); White Blood Cell Count 20.1 10^3/uL (4.8-10.8)
[2024-01-15 09:00] LABS: ALT (SGPT) 18 U/L (0-50); AST (SGOT) 23 U/L (17-59); Albumin 4.1 g/dl (3.5-5.0); Alkaline Phosphatase 88 U/L (38-126); Blood Urea Nitrogen 65 mg/dl (9-20); Calcium 8.9 mg/dl (8.4-10.2); Carbon Dioxide 25 mmol/L (22-30); Chloride 106 mmol/L (98-107); Estimated Creatinine Clearance 20 ml/min; Glucose 91 mg/dl (70-99); Potassium 3.5 mmol/L (3.5-5.1); Sodium 142 mmol/L (135-145); Total Bilirubin 0.5 mg/dl (0.2-1.3); Total Protein 6.2 g/dl (6.3-8.2); eGFR 25.18
[2024-01-15] MEDS: PLENDIL EXTENDED RELEASE 5 MG PO (09:13)
[2024-01-15] MEDS: COREG 12.5 MG PO ×2 (09:14→20:51)
[2024-01-15] MEDS: LOW STRENGTH ASPIRIN 81 MG PO (09:14)
[2024-01-15] MEDS: FARXIGA 10 MG PO (09:14)
[2024-01-15] MEDS: CRESTOR 10 MG PO (09:14)
[2024-01-15 09:33] VITALS: BP 192/89; PULSE 85
[2024-01-15 11:07] VITALS: BP 164/80
--- NOTE | 2024-01-15 12:33 | W.PN.HOSP.TC ---
Today's Communication/Plan
-
.
Assessment / Plan
Assessment / Plan
Physical Exam
General: Comfortable and Conversant; No Fever or Chills
HEENT: NormoCephalic, Anicteric, PERRLA, [place] Conjunctivae and No Ptosis
Respiratory: Clear; No Wheezes, Rales or Rhonchi
Cardiac: S1/S2 and Regular Rhythm; No Murmur, Rub, Gallop or Peripheral Edema
GI: Soft, Non Tender, Non Distended, Normal Bowel Sounds and No Hepatosplenomegaly
Rectal: Hem Positive ([place])
Genito-urinary: No Hua
Musculoskeletal: No Clubbing, No Cyanosis and No Edema
Skin: Warm and Dry; No Rash
Neuro: AO x 3, No Motor Deficits, Nonfocal/grossly intact, Cranial Nerves Intact and No Sensory Deficits; No Slurred Speech, Facial Droop or Tremors
Psych: No agitation
Assessment and plan
# Acute blood loss anemia secondary to GI bleeding, possibly upper GI bleeding due to history of duodenal telangiectasia in the past exacerbated by use of aspirin and Plavix
Hold Plavix, continue with aspirin
No signs of shock
Continue with Protonix
Antinausea medicine as needed
Ok for diet, plan for EGD after Plavix washout
Appreciate GI help
# Recent left lower extremity angiogram and stent placement
Held Plavix for anticipated GI workup and ongoing GI bleeding
Continue with aspirin for now
Vascular surgery is consulted.
# recent dx of CLL.. Primary oncologist Dr. Parson.
#Chronic kidney disease stage IV
Creatinine mildly elevated from 2.1-2.3
Will continue to monitor. Avoid nephrotoxic
# Essential HTN
uncontrolled
c/w Coreg, add low dose nifedipine
Total time spent to see the patient, examine the patient on the floor, review data and lab results, discuss treatment plan with patient, nursing staff around 55 minutes
Anticipated Discharge: > 48 hours
Subjective/Interval History
-
Date of Service: January 15, 2024
No complaints
No more Bms
Objective Data
-
Labs:
Laboratory Results
01/15/24
05:39
WBC 20.1 H
Hgb 8.8 L
Hct 26.6 L
Plt Count 145
Sodium 142
Potassium 3.5
Chloride 106
Carbon Dioxide 25
BUN 65 H
Creatinine 2.5 H
Glucose 91
Calcium 8.9
Total Bilirubin 0.5
AST 23
ALT 18
Alkaline Phosphatase 88
Vital Signs:
Vital Signs
Temp Pulse Resp BP Pulse Ox
98.5 F 74 18 164/80 100
01/15/24 07:00 01/15/24 07:00 01/15/24 07:00 01/15/24 11:07 01/15/24 07:00
I&O
01/14/24 01/15/24 01/16/24
06:59 06:59 06:59
Intake Total 120 / 120
Balance 120 / 120
--- NOTE | 2024-01-15 12:39 | W.PN.GI.CBS2 ---
Today's Communication / Plan
-
monitor Hb
continue PPI
Assessment / Plan
-
Pt is an 83yo with hx chauhan's, CKD, leukemia, HTN, Hypercholesterolemia, bladder CA, prior angioectasia and recent chronic limb ischemia with arteriogram, recanalization of occluded left distal femoral popliteal artery, angioplasty with placement
of ALYSHA x2 in December 2023 with addition of Plavix. Pt now reports black stool over last few days. Last EGD 2018 with single angioectasia in duodenum treated with bipolar cautery, small HH, bx with + intestinal metaplasia, Colonoscopy 2019 with
diverticulosis, non bleeding hemorrhoids, TA polyps. On admission hbg 10 with baseline 12-13 in November. BUN up to 75 on admission
-melena/ acute anemia
-hx vascular stenting December 2023 on ASA and Plavix
-hx duodenal angioectasia 2018
-hx colon polyps
-- CLL
plan
although Hb is down this am but no overt GI bleeding
continue diet for now
Monitor H&H
Continue Protonix drip
Last Plavix -on hold now. Okay to continue aspirin
Timing of EGD to be decided next week after Plavix washout
Total Time Spent with Patient (in minutes): 35
Subjective
Subjective
Date of Service: January 15, 2024
denies any further bleeding . tolerating diet
Objective
Data Reviewed
Laboratory Data:
Laboratory Results
01/15/24 05:39
01/15/24 05:39
Laboratory Results
PT 13.2 Sec (11.4-14.6) 01/14/24 11:16
INR 1.02 01/14/24 11:16
Total Bilirubin 0.5 mg/dl (0.2-1.3) 01/15/24 05:39
AST 23 U/L (17-59) 01/15/24 05:39
ALT 18 U/L (0-50) 01/15/24 05:39
Alkaline Phosphatase 88 U/L (38-126) 01/15/24 05:39
Vital Signs and I&O:
Vital Signs
Temp Pulse Resp BP Pulse Ox
98.5 F 74 18 164/80 100
01/15/24 07:00 01/15/24 07:00 01/15/24 07:00 01/15/24 11:07 01/15/24 07:00
I&O
01/14/24 01/15/24 01/16/24
06:59 06:59 06:59
Intake Total 120 / 120
Balance 120 / 120
Physical Exam
Physical Exam
GI: Soft, Non Distended and Non Tender
[2024-01-15] MEDS: APRESOLINE 10 MG PO (13:18)
[2024-01-15 15:00] VITALS: BP 145/81
--- NOTE | 2024-01-15 16:21 | CM ---
Met with pt at bedside
Lives alone in a 2 story home
Independent, does own shopping/food prep
DME - none
SNF/HH - denies past hx
Has ride at d/c
PCP - DR Villegas
Pharm - [facility]
Plan - home no needs
[2024-01-15] MEDS: PROTONIX 40 MG PO (20:51)
[2024-01-15 23:00] VITALS: BP 161/74
[2024-01-16 06:33] LABS: % Basophils 0.2 % (0-2); % Eosinophils 0.5 % (0-6); % Immature Granulocytes 0.1 % (0-0.5); % Monocytes 5.8 % (1.7-9.3); Absolute Basophils 0.1 10^3/uL (0-0.2); Absolute Eosinophils 0.2 10^3/uL (0-0.7); Absolute Lymphocytes 21.7 10^3/uL (1.2-3.4); Absolute Monocytes 1.7 10^3/uL (0.1-0.6); Hematocrit 29.9 % (39.0-52.0); Hemoglobin 9.5 g/dL (13.0-18.0); Mean Corp Hgb Conc. 31.8 g/dL (33.0-37.0); Mean Corpuscular Volume 97.7 fL (80.0-94.0); Mean Platelet Volume 10.6 fL (7.4-10.4); Nucleated Red Blood Cells % 0 % (-); Platelet Count 171 10^3/uL (130-400); Red Blood Cell Count 3.06 10^6/uL (4.70-6.10); Red Cell Dist. Width 15.2 % (11.5-14.5); White Blood Cell Count 28.6 10^3/uL (4.8-10.8)
[2024-01-16 06:50] LABS: % Neutrophils 17.4 % (42.2-75.2)
[2024-01-16 07:09] LABS: ALT (SGPT) 19 U/L (0-50); AST (SGOT) 25 U/L (17-59); Albumin 4.6 g/dl (3.5-5.0); Alkaline Phosphatase 90 U/L (38-126); Blood Urea Nitrogen 68 mg/dl (9-20); Calcium 9.4 mg/dl (8.4-10.2); Carbon Dioxide 26 mmol/L (22-30); Chloride 105 mmol/L (98-107); Estimated Creatinine Clearance 19 ml/min; Glucose 111 mg/dl (70-99); Potassium 3.8 mmol/L (3.5-5.1); Sodium 142 mmol/L (135-145); Total Bilirubin 0.5 mg/dl (0.2-1.3); eGFR 22.96
[2024-01-16 07:30] VITALS: BP 193/95
[2024-01-16] MEDS: CRESTOR 10 MG PO (07:59)
[2024-01-16] MEDS: LOW STRENGTH ASPIRIN PO ×2 (08:00→08:18)
[2024-01-16] MEDS: COREG 12.5 MG PO ×2 (08:00→20:22)
[2024-01-16] MEDS: PLENDIL EXTENDED RELEASE 5 MG PO (08:00)
[2024-01-16] MEDS: FARXIGA 10 MG PO (08:00)
[2024-01-16] MEDS: PROTONIX 40 MG PO ×2 (08:02→20:23)
[2024-01-16] MEDS: APRESOLINE 25 MG PO ×2 (08:04→20:23)
--- NOTE | 2024-01-16 09:59 | W.PN.HOSP.TC ---
Today's Communication/Plan
-
Bladder scan
pt agreed to take aspirin
add hydralazine
Mild IVF for worsening creatinine
Assessment / Plan
Assessment / Plan
Physical Exam
General: Comfortable and Conversant; No Fever or Chills
HEENT: NormoCephalic, Anicteric, PERRLA, [place] Conjunctivae and No Ptosis
Respiratory: Clear; No Wheezes, Rales or Rhonchi
Cardiac: S1/S2 and Regular Rhythm; No Murmur, Rub, Gallop or Peripheral Edema
GI: Soft, Non Tender, Non Distended, Normal Bowel Sounds and No Hepatosplenomegaly
Rectal: Hem Positive ([place])
Genito-urinary: No Hua
Musculoskeletal: No Clubbing, No Cyanosis and No Edema
Skin: Warm and Dry; No Rash
Neuro: AO x 3, No Motor Deficits, Nonfocal/grossly intact, Cranial Nerves Intact and No Sensory Deficits; No Slurred Speech, Facial Droop or Tremors
Psych: No agitation
Assessment and plan
# Acute blood loss anemia secondary to GI bleeding, possibly upper GI bleeding due to history of duodenal telangiectasia in the past exacerbated by use of aspirin and Plavix
HGB dropped from 13 in November to 8 in December
Less [place] now while in hospital and HGB seems to stabilize now.
Hold Plavix, continue with aspirin. I counseled the pt that he should at least stay on aspirin
No signs of shock
Continue with Protonix
Antinausea medicine as needed
Discussed with Vascular surgery equipment monitor phototypesetting, Dr Hart regarding Mx, ok for now with aspirin until GI clears him to go back on Dual therapy.
Ok for diet, plan for EGD after Plavix washout
Appreciate GI help
# Recent left lower extremity angiogram and stent placement
Held Plavix for anticipated GI workup and ongoing GI bleeding
Continue with aspirin for now
Vascular surgery service is updated.
# recent dx of CLL.. Primary oncologist Dr. Eb.
#Chronic kidney disease stage IV
Creatinine mildly elevated from 2.1-2.3, now 2.7, possibly due to poorly controlled HTN
check bladder scan also.
BMP in am. Avoid nephrotoxic
Add low rate IVF
# Essential HTN
uncontrolled
c/w Coreg, Plendil. Will add hydralazine BID.
Total time spent to see the patient, examine the patient on the floor, review data and lab results, discuss treatment plan with patient, nursing staff around 55 minutes
Anticipated Discharge: > 48 hours
Subjective/Interval History
-
Date of Service: January 16, 2024
No chest pain
No sob
No black stools last night
Objective Data
-
Labs:
Laboratory Results
01/16/24
06:12
WBC 28.6 H
Hgb 9.5 L
Hct 29.9 L
Plt Count 171
Sodium 142
Potassium 3.8
Chloride 105
Carbon Dioxide 26
BUN 68 H
Creatinine 2.7 H
Glucose 111 H
Calcium 9.4
Total Bilirubin 0.5
AST 25
ALT 19
Alkaline Phosphatase 90
Vital Signs:
Vital Signs
Temp Pulse Resp BP Pulse Ox
97.5 F 75 19 193/95 100
01/16/24 07:30 01/16/24 07:30 01/16/24 07:30 01/16/24 07:30 01/16/24 07:30
I&O
01/15/24 01/16/24 01/17/24
06:59 06:59 06:59
Intake Total 120 / 120 420 / 420
Balance 120 / 120 420 / 420
[2024-01-16 11:10] VITALS: BP 143/67
--- NOTE | 2024-01-16 11:18 | W.PN.GI.CBS2 ---
Today's Communication / Plan
-
N.p.o. after midnight
EGD tomorrow
Assessment / Plan
-
Pt is an 83yo with hx chauhan's, CKD, leukemia, HTN, Hypercholesterolemia, bladder CA, prior angioectasia and recent chronic limb ischemia with arteriogram, recanalization of occluded left distal femoral popliteal artery, angioplasty with placement
of ALYSHA x2 in December 2023 with addition of Plavix. Pt now reports black stool over last few days. Last EGD 2018 with single angioectasia in duodenum treated with bipolar cautery, small HH, bx with + intestinal metaplasia, Colonoscopy 2019 with
diverticulosis, non bleeding hemorrhoids, TA polyps. On admission hbg 10 with baseline 12-13 in November. BUN up to 75 on admission
-melena/ acute anemia
-hx vascular stenting December 2023 on ASA and Plavix
-hx duodenal angioectasia 2018
-hx colon polyps
-- CLL
plan
Hb stable. No further bleeding. Vascular would like to restart Plavix soon. So we will plan EGD tomorrow
N.p.o. after midnight
Total Time Spent with Patient (in minutes): 35
Subjective
Subjective
Date of Service: January 16, 2024
No further bleeding
Objective
Data Reviewed
Laboratory Data:
Laboratory Results
01/16/24 06:12
01/16/24 06:12
Laboratory Results
PT 13.2 Sec (11.4-14.6) 01/14/24 11:16
INR 1.02 01/14/24 11:16
Total Bilirubin 0.5 mg/dl (0.2-1.3) 01/16/24 06:12
AST 25 U/L (17-59) 01/16/24 06:12
ALT 19 U/L (0-50) 01/16/24 06:12
Alkaline Phosphatase 90 U/L (38-126) 01/16/24 06:12
Vital Signs and I&O:
Vital Signs
Temp Pulse Resp BP Pulse Ox
97.4 F 76 18 143/67 100
01/16/24 11:10 01/16/24 11:10 01/16/24 11:10 01/16/24 11:10 01/16/24 11:10
I&O
01/15/24 01/16/24 01/17/24
06:59 06:59 06:59
Intake Total 120 / 120 420 / 420
Balance 120 / 120 420 / 420
Physical Exam
Physical Exam
GI: Soft, Non Distended and Non Tender
[2024-01-16 15:45] VITALS: BP 169/84
[2024-01-16] MEDS: NSS 1000 IV (20:23)
[2024-01-16 23:04] VITALS: BP 142/75
[2024-01-17] MEDS: NSS 1000 IV (05:01)
[2024-01-17 05:29] LABS: % Basophils 0.2 % (0-2); % Eosinophils 0.6 % (0-6); % Immature Granulocytes 0.2 % (0-0.5); % Lymphocytes 78.1 % (20.5-51.1); % Monocytes 2.4 % (1.7-9.3); % Neutrophils 18.5 % (42.2-75.2); Absolute Basophils 0.1 10^3/uL (0-0.2); Absolute Eosinophils 0.1 10^3/uL (0-0.7); Absolute Immature Granulocytes 0.1 10^3/uL (0-0.05); Absolute Lymphocytes 16.1 10^3/uL (1.2-3.4); Absolute Monocytes 0.5 10^3/uL (0.1-0.6); Absolute Neutrophils 3.8 10^3/uL (1.4-6.5); Hematocrit 25.3 % (39.0-52.0); Hemoglobin 8.9 g/dL (13.0-18.0); Mean Corp Hgb Conc. 35.2 g/dL (33.0-37.0); Mean Corpuscular Hgb 31.7 pg (27.0-31.0); Mean Platelet Volume 10.5 fL (7.4-10.4); Nucleated Red Blood Cells % 0 % (-); Platelet Count 126 10^3/uL (130-400); Red Blood Cell Count 2.81 10^6/uL (4.70-6.10); Red Cell Dist. Width 15.1 % (11.5-14.5); White Blood Cell Count 20.6 10^3/uL (4.8-10.8)
[2024-01-17 06:25] LABS: ALT (SGPT) 16 U/L (0-50); AST (SGOT) 26 U/L (17-59); Albumin 3.7 g/dl (3.5-5.0); Alkaline Phosphatase 72 U/L (38-126); Blood Urea Nitrogen 67 mg/dl (9-20); Calcium 8.4 mg/dl (8.4-10.2); Carbon Dioxide 22 mmol/L (22-30); Chloride 111 mmol/L (98-107); Estimated Creatinine Clearance 20 ml/min; Glucose 89 mg/dl (70-99); Potassium 3.8 mmol/L (3.5-5.1); Sodium 142 mmol/L (135-145); Total Bilirubin 0.5 mg/dl (0.2-1.3); Total Protein 6.1 g/dl (6.3-8.2); eGFR 24.02
[2024-01-17 07:00] VITALS: BP 124/86
[2024-01-17] MEDS: CRESTOR 10 MG PO (08:02)
[2024-01-17] MEDS: PLENDIL EXTENDED RELEASE 5 MG PO (08:02)
[2024-01-17] MEDS: APRESOLINE 25 MG PO ×2 (08:02→20:03)
[2024-01-17] MEDS: FARXIGA 10 MG PO (08:02)
[2024-01-17] MEDS: PROTONIX 40 MG PO ×2 (08:02→20:03)
[2024-01-17] MEDS: LOW STRENGTH ASPIRIN 81 MG PO (08:02)
[2024-01-17] MEDS: COREG 12.5 MG PO ×2 (08:03→20:03)
[2024-01-17 09:25] VITALS: BP 111/44; BP_SYST 22
[2024-01-17 09:40] VITALS: BP 112/51; BP_SYST 22
[2024-01-17 15:00] VITALS: BP 146/81
[2024-01-17] MEDS: NSS IV (16:33)
--- NOTE | 2024-01-17 18:43 | W.PN.HOSP.TC ---
Addendum entered and electronically signed by Christie Wilcox MD 01/17/24 19:27:
Patient seen and examined independently--agree with plan set forth by Dr. Epstein
GENERAL: well developed, well nourished, male in no apparent distress
HEENT: NC/AT--walking around the room--no O2
HEART: regular rate and rhythm, +S1, +S2
LUNGS : clear to auscultation bilaterally
ABDOM: soft, nontender, nondistended, + bowel sounds
EXT: no cyanosis, clubbing, or edema
NEUROLOGIC: grossly intact
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
single superficial duodenal ulcer with no stigmata of bleeding in first portion of duodenum--HGB dropped from 13 in November, currently 8.9, was 9.5 yesterday. This is likely dilutional from IV fluid--stop IVF and reassess--likely home in AM if
stable--Continue with Protonix twice daily for 1 month, then continue once daily--Hold Plavix, continue aspirin until cleared by GI--GI appreciated
PAD--S/p recent left lower extremity angiogram and stent placement--Hold Plavix, continue aspirin until cleared by GI
History of CLL--Followed by oncologist Dr. Parson--WBC at baseline
CKD stage IV--Creatinine mildly elevated to 2.7, currently 2.6--Follow BMP, avoid nephrotoxic medications.
Essential HTN--Continue Coreg, felodipine, and hydralazine.
code status -- DNR
anticipate d/c in AM
Original Note:
Today's Communication/Plan
-
Stop IV fluid
BMP and CBC in AM.
Protonix
Continue antihypertensives
Assessment / Plan
Assessment / Plan
Mr. Nicholas is an 83-year-old male with PMH of CLL, admitted 01/03/1011/10/2023 for black stool and acute anemia s/p recanalization of occluded left femoral/popliteal artery with angioplasty December 2023 and was on ASA plus Plavix BACK JOINER.
Assessment and plan:
Acute blood loss anemia secondary to GI bleeding
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
-HGB dropped from 13 in November, currently 8.9, was 9.5 yesterday. This is likely dilutional from IV fluid.
-EGD 01/17/2024 reported grade a esophagitis, gastritis, duodenitis, and single superficial duodenal ulcer with no stigmata of bleeding in first portion of duodenum.
-Discontinue IV fluid, reassess CBC and BMP tomorrow
-Continue with Protonix twice daily for 1 month, then continue once daily.
-Hold Plavix, continue aspirin until cleared by GI.
-GI appreciated
S/p recent left lower extremity angiogram and stent placement.
History of CLL.
-Followed by oncologist Dr. Parson.
CKD stage IV
-Creatinine mildly elevated to 2.7, currently 2.6.
-Follow BMP, avoid nephrotoxic medications.
Essential HTN
Improving.
-Continue Coreg, felodipine, and hydralazine.
Anticipated Discharge: Within 24 hours
Subjective/Interval History
-
Date of Service: January 17, 2024
Objective Data
-
Labs:
Laboratory Results
01/17/24
05:09
Plt Count 126 L D
Vital Signs:
Vital Signs
Temp Pulse Resp BP Pulse Ox
97.6 F 80 18 146/81 99
01/17/24 15:00 01/17/24 15:00 01/17/24 15:00 01/17/24 15:00 01/17/24 15:00
I&O
01/16/24 01/17/24 01/18/24
06:59 06:59 06:59
Intake Total 420 / 420 2039 840 / 840
Balance 420 / 420 2039 840 / 840
Review of Systems
-
History Source: Patient
All other systems: Not reviewed unless documented
Constitutional: Denies Fever
Respiratory: Reports No Symptoms; Denies Cough or Trouble Breathing
Cardiac: Reports No Symptoms; Denies Chest Pain or Palpitations
Abdomen/GI: Reports No Symptoms; Denies Abdominal Pain, Bloody Stools or Black Stools
Physical Exam
-
General: No Apparent Distress and Comfortable; Negative Respiratory Distress
Respiratory: Clear to Auscultation
Cardiac: S1/S2; Negative Murmur or Rub
GI: Soft, Nontender, Nondistended and Normal Bowel Sounds
Musculoskeletal: No Clubbing, No Cyanosis and No Edema
Neuro: Awake, Alert and AO x 3
Psych: Calm
Data Reviewed
-
Labs: Labs Reviewed by me and Discussed with Physician
Old Records: Reviewed
[2024-01-17 23:00] VITALS: BP 134/72
--- NOTE | 2024-01-17 23:11 | W.DCSUMMARY ---
Addendum entered and electronically signed by Christie Wilcox MD 01/18/24 13:55:
Read discharge summary in full. Agree with hospital course and treatments as indicated below.
Original Note:
Discharge Summary
Discharge Data
Date of Admission: 01/14/24
Date of Discharge: 01/18/24
-
Pending Results: No
Hospital Course
Mr. 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 At the time of presentation, Pt notes that symptoms had been
ongoing for about 3 days. He was placed on aspirin and Plavix after the procedure. His labs in the ED showed significant drop in Hb levels from baseline and he was admitted for further workup for a possible upper GI bleed. Of note, EGD done 2018
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 Colonoscopy 2019 showed multiple diverticula, and non bleeding hemorrhoids.
During the course of his hospital stay, pt was seen in conjunction with Gastroenterology. Repeat EGD was significant for LA Grade A esophagitis, gastritis, duodenitis and, one superficial duodenal ulcer with no stigmata of bleeding. His hemoglobin
improved after IV fluid was discontinued and pt was started on Protonix 40mg twice daily to be continued for 1 month and then once daily. Plavix was also restarted at preadmission dose.
Pt is now stable to be discharged home with no evidence of further acute bleeding or melena.
Discharge Plan
-
Patient Disposition: Home (Routine Discharge)
Discharge Diagnosis/Procedures: Upper GI bleed, esophagitis, gastritis, duodenitis, superficial duodenal ulcer.
Condition: Good
Diet: Regular
Activity: No restrictions and As tolerated
Driving Restrictions: As prior to admission
Bathing Restrictions: None
Referrals:
Juliano Villegas MD [Family Provider] -
Additional Discharge Medication Instructions: Start Protonix 40 mg twice daily for 1 month and continue 40 mg once daily.
Prescriptions:
New
pantoprazole 40 mg Tablet,Delayed Release (Dr/Ec)
40 mg PO BID Qty: 60 0RF
Rx Instructions:
Start 40 mg twice daily for 1 month, continue 40 mg once daily.
Continued
felodipine 5 MG tablet extended release 24 hr
5 mg PO DAILY
carvedilol 12.5 MG tablet
12.5 mg PO BID
hydrochlorothiazide 25 MG tablet
25 mg PO DAILY
Cardio [place] ([facility])
2 tab PO DAILY
rosuvastatin 10 mg Tablet
10 mg PO DAILY
dapagliflozin propanediol [Farxiga] 10 mg Tablet
10 mg PO DAILY
clopidogrel 75 mg Tablet
75 mg PO DAILY Qty: 90 0RF
aspirin [Children's Aspirin] 81 mg Tablet,Chewable
81 mg PO DAILY Qty: 90 0RF
Discharge Orders:
Discharge Patient (As Directed); Ordered 01/18/24
Ordered By: Nestor Epstein
Discharge Date and Time
Print Language: EGYPTIAN
[2024-01-18 05:39] LABS: % Basophils 0.2 % (0-2); % Eosinophils 0.9 % (0-6); % Immature Granulocytes 0.1 % (0-0.5); % Lymphocytes 79.4 % (20.5-51.1); % Monocytes 2.4 % (1.7-9.3); Absolute Eosinophils 0.2 10^3/uL (0-0.7); Absolute Lymphocytes 16.8 10^3/uL (1.2-3.4); Absolute Monocytes 0.5 10^3/uL (0.1-0.6); Absolute Neutrophils 3.6 10^3/uL (1.4-6.5); Hematocrit 23.8 % (39.0-52.0); Hemoglobin 7.9 g/dL (13.0-18.0); Mean Corp Hgb Conc. 33.2 g/dL (33.0-37.0); Mean Corpuscular Hgb 31.3 pg (27.0-31.0); Mean Corpuscular Volume 94.4 fL (80.0-94.0); Mean Platelet Volume 10.9 fL (7.4-10.4); Nucleated Red Blood Cells % 0 % (-); Platelet Count 125 10^3/uL (130-400); Red Blood Cell Count 2.52 10^6/uL (4.70-6.10); Red Cell Dist. Width 15.4 % (11.5-14.5); White Blood Cell Count 21.1 10^3/uL (4.8-10.8)
[2024-01-18 06:27] LABS: Blood Urea Nitrogen 59 mg/dl (9-20); Calcium 8.7 mg/dl (8.4-10.2); Carbon Dioxide 21 mmol/L (22-30); Chloride 110 mmol/L (98-107); Estimated Creatinine Clearance 20 ml/min; Glucose 90 mg/dl (70-99); Potassium 3.6 mmol/L (3.5-5.1); Sodium 141 mmol/L (135-145); eGFR 24.02
[2024-01-18 07:38] VITALS: BP 186/95
[2024-01-18] MEDS: PLAVIX 75 MG PO (07:38)
[2024-01-18] MEDS: COREG 12.5 MG PO (07:38)
[2024-01-18] MEDS: PLENDIL EXTENDED RELEASE 5 MG PO (07:38)
[2024-01-18] MEDS: PROTONIX 40 MG PO (07:38)
[2024-01-18] MEDS: LOW STRENGTH ASPIRIN 81 MG PO (07:38)
[2024-01-18] MEDS: APRESOLINE 25 MG PO (07:38)
[2024-01-18] MEDS: CRESTOR 10 MG PO (07:38)
[2024-01-18] MEDS: FARXIGA 10 MG PO (07:38)
--- NOTE | 2024-01-18 08:18 | W.PN.HOSP.TC ---
Addendum entered and electronically signed by Christie Wilcox MD 01/18/24 13:39:
Patient seen and examined independently--agree with plan set forth by Dr. Epstein
GENERAL: well developed, well nourished, male in no apparent distress
HEENT: NC/AT--walking around the room--no O2
HEART: regular rate and rhythm, +S1, +S2
LUNGS : clear to auscultation bilaterally
ABDOM: soft, nontender, nondistended, + bowel sounds
EXT: no cyanosis, clubbing, or edema
NEUROLOGIC: grossly intact
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
single superficial duodenal ulcer with no stigmata of bleeding in first portion of duodenum--HGB dropped from 13 in November, currently 8.9, then 7.9 on 01/17 AM, repeat at noon showed 9.2, pt without bleeding-- This is likely dilutional from IV
fluid--stop IVF and reassess--likely home in AM if stable--Continue with Protonix twice daily for 1 month, then continue once daily--Hold Plavix, continue aspirin until cleared by GI--GI appreciated
PAD--S/p recent left lower extremity angiogram and stent placement--Hold Plavix, continue aspirin until cleared by GI
History of CLL--Followed by oncologist Dr. Parson--WBC at baseline
CKD stage IV--Creatinine mildly elevated to 2.7, currently 2.6--Follow BMP, avoid nephrotoxic medications.
Essential HTN--Continue Coreg, felodipine, and hydralazine.
code status -- DNR
OK for d/c
Original Note:
Today's Communication/Plan
-
Hb trending down, repeat CBC with improved Hb
Check stool for blood
Discharge planning
Assessment / Plan
Assessment / Plan
Mr. Nicholas is an 83-year-old male with PMH of CLL, admitted 01/03/1011/10/2023 for black stool and acute anemia s/p recanalization of occluded left femoral/popliteal artery with angioplasty December 2023 and was on ASA plus Plavix PSYCHOLOGY INTERN.
Assessment and plan:
Acute blood loss anemia secondary to GI bleeding
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
-HGB dropped from 13 in November, continued to trend down over the past two days, currently 7.9, was 8.9 yesterday despite discontinuing IVF.
-Recheck CBC in the afternoon showed improved Hb 9.2.
-EGD 01/17/2024 reported grade a esophagitis, gastritis, duodenitis, and single superficial duodenal ulcer with no stigmata of bleeding in first portion of duodenum.
-No evidence of bleeding
-Continue with Protonix twice daily for 1 month, then continue once daily.
-Hold Plavix, continue aspirin until cleared by GI.
-GI appreciated
Constipation
-No BM for two days
-Takes Metamucil at home.
-Miralax and Colace today.
-Evaluate stool for blood and color.
S/p recent left lower extremity angiogram and stent placement.
History of CLL.
-Followed by oncologist Dr. Parson.
CKD stage IV
-Creatinine mildly elevated to 2.7, currently 2.6.
-Follow BMP, avoid nephrotoxic medications.
Essential HTN
Labile.
-Blood pressure normal at home per patient, likely 'white coat syndrome'.
-Continue Coreg, felodipine, and hydralazine.
Anticipated Discharge: Today
Subjective/Interval History
-
Date of Service: January 18, 2024
Objective Data
-
Labs:
Laboratory Results
01/18/24
05:11
WBC 21.1 H
Hgb 7.9 L
Hct 23.8 L
Plt Count 125 L
Sodium 141
Potassium 3.6
Chloride 110 H
Carbon Dioxide 21 L
BUN 59 H
Creatinine 2.6 H
Glucose 90
Calcium 8.7
Vital Signs:
Vital Signs
Temp Pulse Resp BP Pulse Ox
98.4 F 73 16 186/95 100
01/18/24 07:38 01/18/24 07:38 01/18/24 07:38 01/18/24 07:38 01/18/24 07:38
I&O
01/17/24 01/18/24 01/19/24
06:59 06:59 06:59
Intake Total 2039 1320 / 1320
Balance 2039 1320 / 1320
Review of Systems
-
History Source: Patient
All other systems: Not reviewed unless documented
Constitutional: Reports No Symptoms; Denies Fever
EENT: Reports No Symptoms Reported
Respiratory: Reports No Symptoms; Denies Cough or Trouble Breathing
Cardiac: Reports No Symptoms; Denies Chest Pain or Palpitations
Abdomen/GI: Reports No Symptoms; Denies Abdominal Pain, Bloody Stools or Black Stools
Genitourinary: Reports No Symptoms
Skin: Reports No Symptoms
Physical Exam
-
General: No Apparent Distress and Comfortable; Negative Respiratory Distress
HEENT: Normocephalic and Atraumatic
Respiratory: Clear to Auscultation; Negative Crackles
Cardiac: Regular Rhythm and S1/S2; Negative Murmur or Rub
GI: Soft, Nontender, Nondistended and Normal Bowel Sounds
Musculoskeletal: No Clubbing, No Cyanosis and No Edema
Skin: Warm
Neuro: Awake, Alert and AO x 3
Psych: Calm
Data Reviewed
-
Labs: Labs Reviewed by me and Discussed with Physician
Old Records: Reviewed
[2024-01-18] MEDS: COLACE 100 MG PO (09:19)
[2024-01-18] MEDS: MIRALAX 17 GRAMS PO (09:19)
--- NOTE | 2024-01-18 10:07 | CM ---
Patient seen at bedside, Patient states he is drinking miralax. Patient plan is for discharge. IMM completed 01/17/24. CM will continue to follow for discharge planning needs.
Plan; home with no needs at this time
[2024-01-18 11:52] LABS: % Basophils 0.2 % (0-2); % Eosinophils 0.5 % (0-6); % Immature Granulocytes 0.3 % (0-0.5); % Monocytes 6.4 % (1.7-9.3); % Neutrophils 18.6 % (42.2-75.2); Absolute Basophils 0.1 10^3/uL (0-0.2); Absolute Eosinophils 0.1 10^3/uL (0-0.7); Absolute Immature Granulocytes 0.1 10^3/uL (0-0.05); Absolute Lymphocytes 20.7 10^3/uL (1.2-3.4); Absolute Monocytes 1.8 10^3/uL (0.1-0.6); Absolute Neutrophils 5.2 10^3/uL (1.4-6.5); Hematocrit 28.5 % (39.0-52.0); Hemoglobin 9.2 g/dL (13.0-18.0); Mean Corp Hgb Conc. 32.3 g/dL (33.0-37.0); Mean Corpuscular Hgb 30.9 pg (27.0-31.0); Mean Corpuscular Volume 95.6 fL (80.0-94.0); Mean Platelet Volume 10.6 fL (7.4-10.4); Nucleated Red Blood Cells % 0 % (-); Platelet Count 159 10^3/uL (130-400); Red Blood Cell Count 2.98 10^6/uL (4.70-6.10); Red Cell Dist. Width 15.4 % (11.5-14.5)
--- NOTE | 2024-01-18 12:33 | W.DS.TRANS ---
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
-
Discharge Instructions:
Instructions:
Stand-Alone Forms:
Changes to Home Medications: No
Discharge Medications:
DC Medications w/original date entered in [facility]
carvedilol 12.5 mg tablet 12.5 mg PO BID 11/21/18
felodipine 5 mg tablet,extended release 24 hr 5 mg PO DAILY 11/21/18
hydrochlorothiazide 25 mg tablet 25 mg PO DAILY 11/21/18
Cardio [place] ([facility]) 2 tab PO DAILY 06/02/19
dapagliflozin propanediol 10 mg tablet (Farxiga) 10 mg PO DAILY 12/08/23
rosuvastatin 10 mg tablet 10 mg PO DAILY 12/08/23
aspirin 81 mg chewable tablet (Children's Aspirin) 81 mg PO DAILY #90 tabs 12/16/23
clopidogrel 75 mg tablet 75 mg PO DAILY #90 tabs 12/16/23
Home Medication Changes
Pending Results: No
[2024-01-18 14:22] VITALS: BP 160/84
== END 2024-01-18 14:38 | disposition home or self-care (01) | DRG 378 ==
LOC: 3 WEST ACU 13:15
PROVIDERS: Clinical Nurse Specialist Family Health; Student in an Organized Health Care Education/Training Program; ADMITTING PHYSICIAN Internal Medicine; ATTENDING PHYSICIAN Internal Medicine; CONSULT PHYSICIAN Internal Medicine Gastroenterology; EMERGENCY PHYSICIAN Emergency Medicine; FAMILY PHYSICIAN Family Medicine
PROC: 0DJ08ZZ Inspection of Upper Intestinal Tract, Via Natural or Artificial Opening Endoscopic (ICD-10-PCS; 2024-01-17)
DX: K31.811 Angiodysplasia of stomach and duodenum with bleeding (principal); C91.10 Chronic lymphocytic leukemia of B-cell type not having achieved remission; N18.4 Chronic kidney disease, stage 4 (severe); D62 Acute posthemorrhagic anemia; D68.32 Hemorrhagic disorder due to extrinsic circulating anticoagulants; E78.00 Pure hypercholesterolemia, unspecified; I12.9 Hypertensive chronic kidney disease with stage 1 through stage 4 chronic kidney disease, or unspecified chronic kidney disease; I71.40 Abdominal aortic aneurysm, without rupture, unspecified; K44.9 Diaphragmatic hernia without obstruction or gangrene; K20.90 Esophagitis, unspecified without bleeding; K29.70 Gastritis, unspecified, without bleeding; K26.9 Duodenal ulcer, unspecified as acute or chronic, without hemorrhage or perforation; K22.70 Barrett's esophagus without dysplasia; I73.9 Peripheral vascular disease, unspecified; Z66 Do not resuscitate; Z60.2 Problems related to living alone; Z85.51 Personal history of malignant neoplasm of bladder; Z87.19 Personal history of other diseases of the digestive system; Z95.5 Presence of coronary angioplasty implant and graft; Z87.891 Personal history of nicotine dependence; Z88.8 Allergy status to other drugs, medicaments and biological substances; Z79.82 Long term (current) use of aspirin; Z79.02 Long term (current) use of antithrombotics/antiplatelets
CPT/HCPCS: 80048; 80053; 85025; 85610; 86850; 86900; 86901; 93005; 96374; 97161; 97166; 99291

== ENCOUNTER → 2024-01-31 12:37 | Outpatient (REF) | payer MEDICARE, SELFPAY | LOC: DHVS 12:37 | PROVIDERS: ATTENDING PHYSICIAN Surgery Vascular Surgery | DX: I73.9 Peripheral vascular disease, unspecified (principal) | CPT/HCPCS: 93922; 93925 ==

== ENCOUNTER → 2024-08-21 09:57 | Outpatient (REF) | payer MEDICARE, SELFPAY | LOC: RAD 09:57 | PROVIDERS: ATTENDING PHYSICIAN Registered Nurse | DX: I73.9 Peripheral vascular disease, unspecified (principal); I71.40 Abdominal aortic aneurysm, without rupture, unspecified | CPT/HCPCS: 76770; 93922; 93925 ==

== ENCOUNTER → 2025-02-01 06:48 | Outpatient (REF) | payer MEDICARE, SELFPAY | LOC: RAD 06:48 | PROVIDERS: ATTENDING PHYSICIAN Surgery Vascular Surgery; FAMILY PHYSICIAN Family Medicine | DX: I73.9 Peripheral vascular disease, unspecified (principal) | CPT/HCPCS: 93922; 93925 ==